=== PATIENT | female | born 1995 | race Caucasian/White ===

== ENCOUNTER 2024-04-25 08:31 | Emergency (ER) | payer SELFPAY ==
[~2024-04-25] VITALS: Ht 152.4 cm; Wt 70.0 kg
[2024-04-25 08:33] VITALS: O2SAT 99
[2024-04-25 09:10] VITALS: TEMP 98.9
[2024-04-25] MEDS: ACETAMINOPHEN 325MG TABLET PO NR (09:10)
[2024-04-25] MEDS: BACITRACIN ZINC OINT UDPKT TOP NR (09:15)
[2024-04-25] MEDS ORDERED: NAPR-681 PO (11:26)
[2024-04-25] MEDS ORDERED: BO1 TP (11:26)
[2024-04-25 16:58] VITALS: BP 112/60; PULSE 78; RESP 16
== END 2024-04-25 16:59 | disposition home or self-care (01) ==
LOC: ER 08:31
DX: S62.632A Displaced fracture of distal phalanx of right middle finger, initial encounter for closed fracture (principal); T74.91XA Unspecified adult maltreatment, confirmed, initial encounter; S00.83XA Contusion of other part of head, initial encounter; S20.219A Contusion of unspecified front wall of thorax, initial encounter; X99.1XXA Assault by knife, initial encounter; Y93.89 Activity, other specified; Y92.89 Other specified places as the place of occurrence of the external cause; Y99.8 Other external cause status
CPT/HCPCS: 71045; 73090; 73130; 70450; 99284; Z7610